=== PATIENT | female | born 2000 | race Caucasian/White ===

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

== ENCOUNTER 2021-10-01 13:00 | Outpatient (CLI) | payer OTHER ==
[2021-10-02 09:26] LABS: HEPATITIS C ANTIBODY NON-REACTIVE (NON-REACTIVE)
[2021-10-02 11:56] LABS: HEPATITIS B SURFACE ANTIGEN NON-REACTIVE (NON-REACTIVE)
[2021-10-02 12:15] LABS: HIV AG/AB 4TH GEN NON-REACTIVE (NON-REACTIVE)
== END 2021-10-01 13:01 | disposition home or self-care (01) ==
LOC: LAB 13:00
PROVIDERS: ATTEND Nurse Practitioner Obstetrics & Gynecology
DX: Z11.3 Encounter for screening for infections with a predominantly sexual mode of transmission (principal)
CPT/HCPCS: 36415; 86592; 86803; 87340; 87389

== ENCOUNTER 2022-09-16 07:00 | Outpatient (CLI) | payer OTHER, MEDICAID ==
[2022-09-16 22:32] LABS: CHLAMYDIA TRACHOMATIS DNA NEGATIVE (NEGATIVE); NEISSERIA GONORRHOEAE DNA NEGATIVE (NEGATIVE); TRICHOMONAS VAGINALIS DNA NEGATIVE (NEGATIVE)
== END 2022-09-16 23:59 | disposition home or self-care (01) ==
LOC: LAB 07:00
PROVIDERS: ATTEND Obstetrics & Gynecology
DX: Z11.3 Encounter for screening for infections with a predominantly sexual mode of transmission (principal)
CPT/HCPCS: 87491; 87591; 87661